=== PATIENT | male | born 2000 | race Caucasian/White ===

== ENCOUNTER 2018-01-09 10:49 | Emergency (ER) | payer MEDICAID ==
[~2018-01-09] VITALS: Ht 170.2 cm; Wt 63.3 kg
[2018-01-09 11:08] VITALS: BP 103/59
== END 2018-01-09 13:40 | disposition home or self-care (01) ==
LOC: ED 13:34
DX: S46.912A Strain of unspecified muscle, fascia and tendon at shoulder and upper arm level, left arm, initial encounter (principal); W19.XXXA Unspecified fall, initial encounter; Y93.44 Activity, trampolining; Y92.89 Other specified places as the place of occurrence of the external cause; Y99.8 Other external cause status
CPT/HCPCS: 99284